=== PATIENT | male | born 1995 | race Caucasian/White ===

== ENCOUNTER 2023-06-13 10:22 | Emergency (ER) | payer SELFPAY ==
--- NOTE | ~2023-06-13 | XR_ITS ---
EXAMINATION: XR chest 2V 06/13/2023 10:55 INDICATION: Cough and chest pain PROCEDURE: 2 view chest COMPARISON: No prior studies for comparison. FINDINGS: The lungs are clear. The cardiomediastinal silhouette is within normal limits. There are no pleural effusions. There is no pneumothorax suspected. IMPRESSION: 1: NO ACUTE CARDIOPULMONARY DISEASE. Reviewed, dictated and finalized at location A.
[2023-06-13 10:33] VITALS: BP 119/74; PULSE 92; RESP 16; TEMP 37; O2SAT 98
--- NOTE | 2023-06-13 10:46 | ECG_ITS ---
Measurements Intervals [place] Rate: 79 P: 59 MA: 152 QRS: 55 QRSD: 92 T: 35 QT: 325 QTc: 374 Interpretive Statements SINUS RHYTHM WITH SINUS ARRHYTHMIA NORMAL ECG NO PREVIOUS ECG AVAILABLE FOR COMPARISON Electronically Signed On 06-13-2023 11:26:09 CDT by Hal Joseph D.O.
--- NOTE | 2023-06-13 10:48 | ED.GENADULT ---
HPI - General Adult General Chief complaint: Nausea/Vomiting/Diarrhea Stated complaint: Chest Pain,Fainted,Nausea Time Seen by Provider: 06/13/23 10:48 Source: patient Mode of arrival: ambulatory Limitations: no limitations History of Present Illness HPI narrative: 27-year-old male patient presents to the [facility] with complaints of chest pain, fainting and nausea, vomiting and diarrhea that has been going on for the past couple of weeks. Patient states he did recently move for the past couple weeks but denies any specific injury that he is aware of. Patient states he is an active smoker and smokes about a pack a day. denies any shortness of breath currently. Patient states the chest pain is mostly when he breathes in and just comes and goes. Patient rates the pain around 223 at times. Patient states he has also been having some mild body aches at times but denies any fevers that he is aware of. Patient denies using any drugs or alcohol recently. Patient states he has had a mild cough but no production. When asked about fainting patient states he felt lightheaded in the shower yesterday and a couple weeks ago but denies full loss of consciousness denies hitting his head or falling. Related Data Home Medications Medication Instructions Recorded Confirmed No Home Medications 06/13/23 06/13/23 Allergies Allergy/AdvReac Type Severity Reaction Status Date / Time No Known Allergies Allergy Verified 06/13/23 10:40 [facility] Social History Social History (Updated 06/13/23 @ 10:53 by KANDACE Terrazas) Smoking packs per day: 1 Smoking cigarettes per day: 20.0 Years smoked: 9 Smoking pack-years: 9.00 Smoking status: Current every day smoker Exam Narrative: GENERAL: Well-appearing, well-nourished, and in no acute distress. HEAD: Normocephalic, atraumatic. EYES: PERRLA and EOMI. ENT: Nares clear, no rhinorrhea or epistaxis. Mucous membranes moist. Posterior pharynx with slight erythema but no tonsillar enlargement, no exudates or lesions present. Bilateral TMs are clear no erythema foreign bodies the canal. NECK: Supple. No lymphadenopathy CHEST: Clear to auscultation. No respiratory distress. Patient able talk in clear complete sentences. No tripoding noted HEART: Regular rate and rhythm. No murmur heard. Normal peripheral pulses. ABDOMEN: Soft, nontender, nondistended, normal active bowel sounds. EXTREMITIES: Normal range of motion. No edema. SKIN: Warm, dry, no rash. NEURO: No focal deficits. Alert and oriented x3. Course Course Level of Care: Express Care Visit Reevaluation(s) Reevaluation #1: Re-evaluated patient notified him that his x-ray was negative, the EKG was unremarkable and his COVID test was negative. Discussed with patient I would recommend taking an antihistamine to help with any dizziness that could be occurring this could be due to allergies or sinus symptoms going on and recommend taking Tylenol ibuprofen for the chest pain given that he did recently move the last couple weeks it could have been a muscle strain to the chest. Discussed with patient if his symptoms worsen I highly recommend that he go to the ER for further evaluation and treatment. Patient verbalized understanding denies any other questions or concerns at this time. Patient is discharged home and is in stable condition at this time. Date: 06/13/23 Time: 12:03 Vital Signs Vital signs: Vital Signs Temperature 37.0 C 06/13/23 10:33 Pulse Rate 92 06/13/23 10:33 Respiratory Rate 16 06/13/23 10:33 Blood Pressure 119/74 06/13/23 10:33 Pulse Oximetry 98 06/13/23 10:33 Oxygen Delivery Room Air 06/13/23 10:33 Temperature 37.0 C 06/13/23 10:33 Pulse Rate 92 06/13/23 10:33 Respiratory Rate 16 06/13/23 10:33 Blood Pressure 119/74 06/13/23 10:33 Pulse Oximetry 98 06/13/23 10:33 Oxygen Delivery Room Air 06/13/23 10:33 vital signs reviewed. Medical Decision Making Diff
== END 2023-06-13 12:03 | disposition home or self-care (01) ==
PROVIDERS: Emergency Provider Nurse Practitioner Family
DX: R07.9 Chest pain, unspecified (principal); Z20.822 Contact with and (suspected) exposure to COVID-19; F17.210 Nicotine dependence, cigarettes, uncomplicated
CPT/HCPCS: 71046; 87426; 93005; 99213; C9803; G0463